=== PATIENT | male | born 1950 | race African-American/Black ===

== ENCOUNTER 2017-09-05 08:50 | Outpatient (CLI) | payer MEDICARE, MEDICAID ==
--- NOTE | 2017-09-05 13:02 | ULT ---
RENAL ULTRASOUND WITH RENAL DOPPLER: Bernal scale ultrasound images of both kidneys obtained. Renal arterial Doppler study is performed wit h color Doppler, spectral analysis, and velocity recordings. HISTORY: Hypertension. FINDINGS: Images of the right kidney reveal increased cortical echogenicity. The right kidney measures 12.5 cm length. There is a cyst superior pole of the right kidney which measures up to 4.5 cm. Right renal artery/aortic ratio: 1.75. Right renal arcuate artery resistive index: 0.76. The left kidney measures 10.6 cm in length. Mild increased cortical echogenicity. No hydronephrosis . The left renal artery-aortic ratio: 0.74. The left renal arcuate artery resistive index: 0.70. Urinary bladder is mildly distended and appears unremarkable with a prevoid volume recorded at 155 cc . Incidentally noted on this exam is evidence of a gallstone within the gallbladder lumen. Suggest ded icated gallbladder ultrasound if this has not been previously evaluated. IMPRESSION: 1. Kidneys show increased cortical echogenicity consistent with chronic renal disease. 2. Large cyst superior pole right kidney. 3. Resistive indices within normal range as noted above. 4. Evidence of cholelithiasis noted incidentally. POS: [facility]
== END 2017-09-05 08:51 | disposition home or self-care (01) ==
LOC: ULT 08:50
PROVIDERS: ATTEND Internal Medicine
DX: I10 Essential (primary) hypertension (principal); N28.1 Cyst of kidney, acquired
CPT/HCPCS: 76700; 76770